=== PATIENT | female | born 1960 | race Caucasian/White ===

== ENCOUNTER 2019-08-30 17:53 | Inpatient (IN) ==
[2019-08-30] MEDS ORDERED: Naloxone 0.4 MG/ML INJ IVP PRN (21:15)
[2019-08-30] MEDS ORDERED: Fluticasone Propionate Nasal 50 MCG/SPRAY BOTTLE NS PRN (21:28)
[2019-08-30] MEDS ORDERED: *HR* HYDROcodone/Acet 5/325 mg TABLET PO PRN (21:28)
[2019-08-30] MEDS: *HR* HYDROmorphone (PF) 1 MG/ML SYRINGE IVP PRN (22:31)
[2019-08-30] MEDS: *HR* Heparin 5,000 UNIT/ML VIAL SQ SCH (22:34)
[2019-08-30] MEDS: Ondansetron 4 MG/2 ML VIAL IVP PRN (23:26)
[2019-08-31] MEDS: Piperacillin/Tazobactam 3.375 GM in 0.9 % Sodium Chloride Mini Bag 100 ML IVPB SCH ×2 (00:56→07:54)
[2019-08-31] MEDS: Ketorolac 15 MG/ML VIAL IVP SCH ×4 (00:57→17:36)
[2019-08-31] MEDS: *HR* HYDROmorphone (PF) 1 MG/ML SYRINGE IVP PRN ×2 (03:18→11:46)
[2019-08-31] MEDS: *HR* Heparin 5,000 UNIT/ML VIAL SQ SCH ×3 (06:30→21:09)
[2019-08-31] MEDS ORDERED: Naloxone 0.4 MG/ML INJ IVP PRN (06:32)
[2019-08-31 07:27] LABS: Prothrombin Time 11.4 Seconds (9.4-12.1)
[2019-08-31 07:35] LABS: Alanine Aminotransferase 26 Units/L (7-52); Albumin 4.1 g/dL (3.5-5.7); Albumin/Globulin Ratio 1.3 (1.1-2.2); Alkaline Phosphatase 86 Units/L (34-104); Aspartate Amino Transferase 19 Units/L (13-39); BUN/Creatinine Ratio 15 (6-26); Bilirubin,Total 0.7 mg/dL (0.3-1.0); Blood Urea Nitrogen 16 mg/dL (6-20); Calcium 9.3 mg/dL (8.6-10.3); Carbon Dioxide 31 mEq/L (23-29); Chloride 98 mEq/L (98-107); Globulin 3.1 g/dL (2.4-3.5); Glucose 127 mg/dL (70-105); Magnesium 1.9 mg/dL (1.6-2.6); Osmolality,Calculated 283 (280-300); Phosphorous 4.3 mg/dL (2.7-4.5); Potassium 3.8 mEq/L (3.5-5.1); Sodium 135 mEq/L (136-145); Total Protein 7.2 g/dL (6.4-8.9); eGFR For African Americans > 60 (> 60); eGFR For Non-African Americans 52 (> 60)
[2019-08-31] MEDS: Loratadine 10 MG TABLET PO SCH (07:58)
[2019-08-31] MEDS: Gabapentin 400 MG CAPSULE PO SCH ×2 (07:58→12:10)
[2019-08-31] MEDS: 0.9 % Sodium Chloride 1,000 ML IVC SCH ×2 (07:59→14:32)
[2019-08-31] MEDS: Metoprolol XL (24 HR) Succ 25 MG TAB.ER.24H PO SCH ×2 (07:59→21:07)
[2019-08-31] MEDS ORDERED: Methylnaltrexone 12 MG/0.6 ML SYRINGE SQ ONE (10:35)
[2019-08-31 11:36] LABS: Basophils % 0.4 %; Eosinophils # 0.2 K/mcL (0.0-0.6); Hematocrit 41.8 % (35.3-44.9); Hemoglobin 13.4 g/dL (11.5-15.4); Immature Granulocytes % 0.2 % (0-4); Lymphocytes # 0.9 K/mcL (0.6-4.6); Lymphocytes % 9.5 %; Mean Corpuscular HGB Conc 32.1 g/dL (31.6-35.5); Mean Corpuscular Hemoglobin 28.5 pg (28.0-33.3); Mean Corpuscular Volume 88.9 fL (83.0-100.0); Mean Platelet Volume 10.5 fL (9.4-12.4); Monocytes # 0.6 K/mcL (0.0-1.3); Monocytes % 6.5 %; Neutrophils # 7.3 K/mcL (1.6-8.9); Platelet Count 240 K/mcL (140-400); Red Cell Distribution Width 14.1 % (11.5-14.5); Segmented Neutrophils % 81.4 %; White Blood Count 8.9 K/mcL (4.3-11.1)
[2019-08-31] MEDS ORDERED: *HR* HYDROmorphone (PF) 1 MG/ML SYRINGE IVP PRN (13:05)
[2019-08-31] MEDS ORDERED: *HR* HYDROcodone/Acet 5/325 mg TABLET PO PRN (13:05)
[2019-08-31] MEDS: Ondansetron 4 MG/2 ML VIAL IVP PRN (15:30)
[2019-08-31] MEDS: Sucralfate 1 GM TABLET PO SCH ×2 (15:39→21:07)
[2019-08-31] MEDS: Metoclopramide 10 MG/2 ML VIAL IVP SCH (17:36)
[2019-08-31] MEDS ORDERED: Metoprolol XL (24 HR) Succ 25 MG TAB.ER.24H PO SCH (21:00)
[2019-08-31] MEDS ORDERED: Aspirin Enteric Coated 81 MG Tablet PO SCH (21:00)
[2019-08-31] MEDS ORDERED: Gabapentin 400 MG CAPSULE PO SCH (21:00)
[2019-08-31] MEDS ORDERED: rOPINIRole 1 MG TABLET PO SCH (21:00)
[2019-09-01] MEDS: Ketorolac 15 MG/ML VIAL IVP SCH ×3 (00:11→13:03)
[2019-09-01] MEDS: Metoclopramide 10 MG/2 ML VIAL IVP SCH ×3 (00:16→13:03)
[2019-09-01] MEDS ORDERED: 0.9 % Sodium Chloride 1,000 ML IVC SCH (03:00)
[2019-09-01 04:01] LABS: Basophils % 0.2 %; Eosinophils # 0.2 K/mcL (0.0-0.6); Hematocrit 37.4 % (35.3-44.9); Hemoglobin 11.5 g/dL (11.5-15.4); Immature Granulocytes % 0.2 % (0-4); Lymphocytes # 1.4 K/mcL (0.6-4.6); Lymphocytes % 17.7 %; Mean Corpuscular HGB Conc 30.7 g/dL (31.6-35.5); Mean Corpuscular Hemoglobin 28.2 pg (28.0-33.3); Mean Corpuscular Volume 91.7 fL (83.0-100.0); Mean Platelet Volume 10.4 fL (9.4-12.4); Monocytes # 0.7 K/mcL (0.0-1.3); Monocytes % 8.4 %; Neutrophils # 5.7 K/mcL (1.6-8.9); Platelet Count 204 K/mcL (140-400); Red Blood Count 4.08 M/mcL (3.82-4.97); Red Cell Distribution Width 14.6 % (11.5-14.5); Segmented Neutrophils % 70.5 %; White Blood Count 8.1 K/mcL (4.3-11.1)
[2019-09-01 04:16] LABS: BUN/Creatinine Ratio 19 (6-26); Blood Urea Nitrogen 20 mg/dL (6-20); Calcium 8.5 mg/dL (8.6-10.3); Carbon Dioxide 27 mEq/L (23-29); Chloride 103 mEq/L (98-107); Glucose 89 mg/dL (70-105); Osmolality,Calculated 286 (280-300); Potassium 3.9 mEq/L (3.5-5.1); Sodium 137 mEq/L (136-145); eGFR For African Americans > 60 (> 60); eGFR For Non-African Americans 55 (> 60)
[2019-09-01] MEDS: *HR* Heparin 5,000 UNIT/ML VIAL SQ SCH (05:15)
[2019-09-01] MEDS ORDERED: Gabapentin 400 MG CAPSULE PO SCH (09:00)
[2019-09-01] MEDS ORDERED: NON-FORMULARY MEDICATION 1 EACH EACH (Ezetimibe [Zetia] 10 MG) PO SCH (09:00)
[2019-09-01] MEDS ORDERED: Losartan/HCTZ 50-12.5 TABLET PO SCH (09:00)
[2019-09-01] MEDS: Loratadine 10 MG TABLET PO SCH (09:12)
[2019-09-01] MEDS: Metoprolol XL (24 HR) Succ 25 MG TAB.ER.24H PO SCH (09:12)
[2019-09-01] MEDS: Sucralfate 1 GM TABLET PO SCH ×2 (09:12→13:03)
[2019-09-01 14:25] VITALS: BP 109/67
== END 2019-09-01 15:34 | disposition home or self-care (01) | DRG 389 ==
LOC: 3ANU → SUATTDRO 19:51
PROVIDERS: ADMIT Internal Medicine; ATTEND Student in an Organized Health Care Education/Training Program